=== PATIENT | male | born 1985 | race Native Hawaiian/Other Pacific Islander ===

== ENCOUNTER 2018-10-10 17:25 | Inpatient (IN) | payer OTHER ==
[~2018-10-10] VITALS: Ht 165.1 cm; Wt 73.5 kg
--- NOTE | 2018-10-10 18:20 | NUR ---
blood was drawn for labs.
--- NOTE | 2018-10-10 18:21 | NUR ---
in room 2a c/o abdominal pain since last night. took tums with no relief. this am had 1 episode of vomiting
[2018-10-10] MEDS ORDERED: MORPHINE SULFATE 2 MG/1 ML DISP.SYRIN IV ONE ×2 (18:30→18:45)
[2018-10-10] MEDS ORDERED: IV NORMAL SALINE 1000 ML BAG IV ONE (18:30)
[2018-10-10] MEDS ORDERED: ONDANSETRON 4 MG/2 ML VIAL IV ONE (18:30)
[2018-10-10 18:40] LABS: BASOPHILS # (AUTO) 0.1 K/uL (0.0-8.0); BASOPHILS % (AUTO) 0.5 % (0.0-2.0); LYMPHOCYTES # (AUTO) 1.4 K/uL (20.0-40.0); LYMPHOCYTES % (AUTO) 9.2 % (20.5-51.5); MEAN CORPUSCULAR HEMOGLOBIN 20.7 uug (23.8-33.4); MEAN CORPUSCULAR HGB CONC 32 g/dL (32.5-36.3); MEAN CORPUSCULAR VOLUME 65.2 fL (73.0-96.2); MONOCYTES # (AUTO) 0.8 K/uL (2.0-10.0); MONOCYTES % (AUTO) 5.1 % (0.0-11.0); NEUTROPHILS # (AUTO) 13.3 K/uL (1.8-8.9); NEUTROPHILS % (AUTO) 85.2 % (38.5-71.5); PLATELET COUNT (AUTO) 314 K/uL (152-348); WHITE BLOOD COUNT (AUTO) 15.6 K/uL (3.6-10.2)
[2018-10-10 18:42] LABS: CREATININE 0.9 mg/dL (0.6-1.3); POTASSIUM 3.8 mmol/L (3.5-5.1)
[2018-10-10 18:46] LABS: RED BLOOD CELL COUNT(AUTO) 6.75 MIL/uL (4.06-5.63)
[2018-10-10 18:47] LABS: BILIRUBIN,DIRECT 0.3 mg/dL (0.0-0.2); BILIRUBIN,TOTAL 1.2 mg/dL (0.2-1.0); TOTAL PROTEIN, SERUM 8.6 g/dL (6.4-8.2)
[2018-10-10] MEDS ORDERED: ONDANSETRON 4 MG/2 ML VIAL ONE (18:52)
[2018-10-10] MEDS ORDERED: MORPHINE SULFATE 4 MG/1 ML DISP.SYRIN ONE ×2 (18:52→20:52)
--- NOTE | 2018-10-10 18:55 | NUR ---
IV #20 inserted via left hand. IV NS started
--- NOTE | 2018-10-10 19:00 | NUR ---
zofran and Morphine given IV
[2018-10-10 19:20] LABS: BAND % (MANUAL) 1 % (0-10); LYMPHOCYTES % (MANUAL) 8 % (20-40); MONOCYTES % (MANUAL) 6 % (2-10); NEUTROPHILS % (MANUAL) 85 % (42-75)
[2018-10-10] MEDS ORDERED: SWABABLE VALVE TRANSFER SET EA MC ONE (19:23)
[2018-10-10] MEDS ORDERED: IV NORMAL SALINE 250 ML IV ONE (19:23)
[2018-10-10] MEDS ORDERED: IOHEXOL 300MG/ML 100 ML INFUS..BTL ONE (19:23)
[2018-10-10] MEDS ORDERED: NORMAL SALINE FLUSH 10 ML DISP.SYRIN ONE (19:23)
[2018-10-10 19:33] LABS: *BILIRUBIN,URIN NEGATIVE (NEGATIVE); *BLOOD, URINE NEGATIVE (NEGATIVE); *CLARITY,URINE CLEAR (CLEAR); *COLOR,URINE YELLOW (YELLOW); *KETONES,URINE 3+ (NEGATIVE); *UROBILINOGEN,URINE 0.2 E.U./dl (NORMAL); LEUKOCYTE ESTERASE ,URINE NEGATIVE (NEGATIVE); NITRITE, URINE NEGATIVE (NEGATIVE); UGLUCOSE NEGATIVE (NEGATIVE)
--- NOTE | 2018-10-10 19:37 | NUR ---
Pt in CT at this time.
[2018-10-10 19:42] LABS: WBC,URINE NONE SEEN /HPF (0-3)
[2018-10-10] MEDS ORDERED: PIPERACILLIN/TAZOBACTAM/D5W 50 ML IV ONE (20:13)
[2018-10-10] MEDS ORDERED: PIPERACILLIN SODIUM/TAZOBACTAM 3.375 G in IV DEXTROSE 5% 50 ML IV ONE (20:15)
[2018-10-10] MEDS ORDERED: MORPHINE SULFATE 4 MG/1 ML DISP.SYRIN IV ONE (20:30)
--- NOTE | 2018-10-10 21:25 | NUR ---
Dr. Youssef on phone with soa integration architect surgeon Dr. Taveras.
--- NOTE | 2018-10-10 21:40 | NUR ---
Pt aware of plan of care. Pt kept NPO at this time.
--- NOTE | 2018-10-10 21:45 | NUR ---
Report given to receiving BUSINESS CONTROL MANAGER. All belongings documented. Pt aware of plan of care.
[2018-10-10 22:13] VITALS: BP 113/50
--- NOTE | 2018-10-10 22:30 | NUR ---
RECEIVED PATIENT VIA W/C FROM ER. PATIENT IS A/O X4. NO C/O PAIN AT THIS TIME. VS WNL. NO RESP. DISTRESS NOTED. H/L INTACT AND PATENT, NOTED TO LEFT HAND #20 GAUGE. ORIENTED PATIENT TO ROOM AND CALL LIGHT. CALL LIGHT IN REACH. ALL NEEDS ATTENDED. WILL CONTINUE TO MONITOR AND ASSESS. CALLED OUT TO DR. NORMA RUCKER SUPERANNUATION CLERK FOR ADMISSION ORDERS.
[2018-10-10] MEDS ORDERED: ONDANSETRON 4 MG/2 ML VIAL IV PRN (22:45)
[2018-10-10] MEDS ORDERED: MORPHINE SULFATE 2 MG/1 ML DISP.SYRIN IV PRN (22:45)
[2018-10-10] MEDS ORDERED: Z GUARD REMEDY PASTE 57 GM TUBE TOP PRN (22:45)
[2018-10-10] MEDS: IV D5LR 1,000 ML IV PRN (22:48)
[2018-10-10] MEDS ORDERED: PIPERACILLIN/TAZOBACTAM/D5W 100 ML IV ONE (23:31)
[2018-10-11] VITALS (7 sets, daily range): BP systolic 101–122; BP diastolic 37–58
[2018-10-11] MEDS: PIPERACILLIN/TAZOBACTAM/D5W 50 ML IV SCH ×2 (00:14→05:50)
--- NOTE | 2018-10-11 06:00 | NUR ---
PATIENT ASLEEP IN BED. SLEPT WELL THROUGHOUT THE NIGHT. IVF INFUSING WELL ORDERED. PATIENT KEPT NPO ORDERED PER MD. VSS. CALL LIGHT IN REACH. ALL NEEDS ATTENDED. WILL CONTINUE TO MONITOR AND ASSESS.
[2018-10-11 07:11] LABS: BILIRUBIN,TOTAL 1.1 mg/dL (0.2-1.0); CREATININE 1.1 mg/dL (0.6-1.3); PHOSPHOROUS 3.8 mg/dL (2.5-4.9); POTASSIUM 3.6 mmol/L (3.5-5.1); TOTAL PROTEIN, SERUM 6.7 g/dL (6.4-8.2)
[2018-10-11 07:25] LABS: BASOPHILS % (AUTO) 0.2 % (0.0-2.0); EOSINOPHILS % (AUTO) 0.5 % (0.0-7.0); LYMPHOCYTES % (AUTO) 19.2 % (20.5-51.5); MEAN CORPUSCULAR HEMOGLOBIN 20.6 uug (23.8-33.4); MEAN CORPUSCULAR HGB CONC 31 g/dL (32.5-36.3); MEAN CORPUSCULAR VOLUME 65.8 fL (73.0-96.2); MONOCYTES # (AUTO) 0.8 K/uL (2.0-10.0); MONOCYTES % (AUTO) 7.4 % (0.0-11.0); NEUTROPHILS # (AUTO) 7.6 K/uL (1.8-8.9); NEUTROPHILS % (AUTO) 72.7 % (38.5-71.5); PLATELET COUNT (AUTO) 278 K/uL (152-348); RED BLOOD CELL COUNT(AUTO) 5.83 MIL/uL (4.06-5.63)
[2018-10-11 07:38] LABS: HEMATOCRIT 38.4 % (36.7-47.1); WHITE BLOOD COUNT (AUTO) 10.4 K/uL (3.6-10.2)
--- NOTE | 2018-10-11 08:00 | NUR ---
RECEIVED PATIENT IN BED AWAKE ALERT AND ORIENTED HE IS NOTHING BY MOUTH PENDING SURGERY TODAY AWAITING FOR DR BARNES RE PLANS TODAY STATED PAIN IS TOLERABLE AT THIS TIME MADE COMFORTABLE.
--- NOTE | 2018-10-11 08:45 | NUR ---
CALL RECEIVED FROM DR BARNES BY THE DINKEY ENGINE FIRER STATED PATIENT IS SCHEDULED FOR SURGERY TODAY PATIENT AWARE WILL PREP HIM.
[2018-10-11 08:52] LABS: BASOPHILS % (MANUAL) 1 % (0-2); EOSINOPHILS % (MANUAL) 1 % (0-8); LYMPHOCYTES % (MANUAL) 26 % (20-40); MONOCYTES % (MANUAL) 6 % (2-10); NEUTROPHILS % (MANUAL) 66 % (42-75)
--- NOTE | 2018-10-11 10:00 | NUR ---
PATIENT REMAINS NOTHING BY MOUTH ORDERED CONSCENT FOR LAPAROSCOPIC APPENDECTOMY VS OPEN TO BE PERFORMED BY DR BARNES TODAY OBTAINED AND DOCUMENTED IVF IN PROGRESS ORDERED WITH NO S/S OF INFILTERATION AT THIS TIME.
[2018-10-11] MEDS ORDERED: LIDOCAINE HCL 1% 20 ML VIAL ONE ×2 (12:18→13:05)
[2018-10-11] MEDS ORDERED: BUPIVACAINE/EPI PF 0.25% 30 ML VIAL ONE (12:18)
[2018-10-11] MEDS: IV D5LR 1,000 ML IV PRN (12:35)
--- NOTE | 2018-10-11 12:50 | NUR ---
PATIENT PICKED UP BY BED TO OR FOR SURGERY SCHEDULED IN SATISFACTORY CONDITION .
[2018-10-11] MEDS ORDERED: MIDAZOLAM HCL 2 MG/2 ML VIAL ONE (13:16)
[2018-10-11] MEDS ORDERED: ROCURONIUM BROMIDE 50 MG/5 ML VIAL ONE (13:16)
[2018-10-11] MEDS ORDERED: FENTANYL CITRATE 250 MCG/5 ML AMPUL ONE (13:16)
[2018-10-11] MEDS ORDERED: PIPERACILLIN/TAZOBACTAM/D5W 3.375 G in PREMIXED 1 EACH IV SCH ×2 (14:00→22:00)
[2018-10-11] MEDS ORDERED: MEPERIDINE 25 MG/1 ML DISP.SYRIN ONE (14:53)
[2018-10-11] MEDS ORDERED: ACETAMINOPHEN 325 MG TABLET PO PRN (15:00)
[2018-10-11] MEDS ORDERED: HYDROCODONE/APAP 5-325MG TABLET PO PRN (15:00)
[2018-10-11] MEDS ORDERED: ACETAMINOPHEN ES 500 MG TABLET PO PRN (15:15)
--- NOTE | 2018-10-11 15:45 | NUR ---
PATIENT RETURNED BY BED FROM SURGERY S/P LAP APPY WITH 3 SCOPE SITES WITH DEMABOND GLUE PATIENT IS AWAKE ALERT AND ORIENTED DENIES PAIN OR DISCOMFORTS AT THIS TIME ON O2 AT 2L/M BY NASAL CANULA POST OP CARE AND EDUCATION STARTED IS INSTRUCTED AND EDUCATED AND PATIENT EXPRESSED UNDERSTANDING.PATIENT IS ON CLEAR LIQUIDS DIET WATER AND TEA PROVIDED PER PATIENTS REQUEST.
[2018-10-11] MEDS ORDERED: DEXAMETHASONE SOD PHOSPHATE 4 MG INJ IV ONE (17:14)
[2018-10-11] MEDS ORDERED: ONDANSETRON 4 MG/2 ML VIAL IV ONE (17:14)
[2018-10-11] MEDS ORDERED: GLYCOPYRROLATE 0.2 MG/ML VIAL MC ONE (17:14)
[2018-10-11] MEDS ORDERED: IV NORMAL SALINE 1000 ML BAG IV ONE (17:14)
[2018-10-11] MEDS ORDERED: LIDOCAINE-MPF 2% 5 ML VIAL MC ONE (17:14)
[2018-10-11] MEDS ORDERED: METOCLOPRAMIDE HCL 10 MG/2 ML VIAL IV ONE (17:14)
[2018-10-11] MEDS ORDERED: NEOSTIGMINE METHYLSULFATE 10 MG/10 ML VIAL IV ONE (17:14)
[2018-10-11] MEDS ORDERED: IRR NORMAL SALINE IRRIGATION 2000 ML BOTTLE IR ONE (17:14)
[2018-10-11] MEDS ORDERED: SEVOFLURANE 250 ML BOTTLE IH ONE (17:14)
[2018-10-11] MEDS ORDERED: PROPOFOL 200 MG/20 ML BOTTLE IV ONE (17:14)
[2018-10-11] MEDS ORDERED: IRR NORMAL SALINE IRRIGATION 1,000 ML BOTTLE IR ONE (17:14)
--- NOTE | 2018-10-11 17:52 | NUR ---
PATIENT IS RESTING AWAKE ALERT AND ORIENTED USING HIS INCENTIVE SPIROMETER TOLERATING LIQUIDS DIET ORDERED WITH NO N/V AT THIS TIME ENCOURAGED PATIENT TO GET OUT OF BED AND WALK STATED LATER NOT READY AT THIS TIME.3 SCOPE INCISION SITES REMAIN INTACT WITH NO DRAINAGE NO BLEEDING AT THIS TIME.WILL CONTINUE TO OBSERVE PATIENT.
--- NOTE | 2018-10-11 20:00 | NUR ---
RECEIVED PATIENT AWAKE IN BED WITH VISITORS AT BEDSIDE. PATIENT IS A/O X4. DENIES PAIN, BUT STATED MILD DISCOMFORT IS PRESENT. DENIES NEEDS FOR ANY MEDICATION AT THIS TIME. VSS. IVF INFUSING WELL TO RIGHT HAND #20 GAUGE. 3 INCISIONS SITES, INTACT. I.S AT BEDSIDE. PATIENT ON O2 2L NC SATING WELL. CALL LIGHT IN REACH. ALL NEEDS ATTENDED. WILL CONTINUE TO MONITOR AND ASSESS.
--- NOTE | 2018-10-11 21:30 | NUR ---
PATIENT OOB AND AMBULATING IN HALLWAY WITH SALES TEAM MANAGER. WILL CONTINUE TO MONITOR.
[2018-10-11] MEDS: MORPHINE SULFATE 2 MG/1 ML DISP.SYRIN IV PRN (22:04)
--- NOTE | 2018-10-11 22:05 | NUR ---
PATIENT AWAKE IN BED. C/O PAIN. VSS. PATIENT GIVEN MORPHINE 2MG IV PER LINE APPLIANCE ASSEMBLER. CALL LIGHT IN REACH. ALL NEEDS ATTENDED.
[2018-10-11] MEDS ORDERED: PIPERACILLIN/TAZOBACTAM/D5W 100 ML IV ONE (22:49)
[2018-10-11] MEDS: PIPERACILLIN/TAZOBACTAM/D5W 3.375 G in PREMIXED 1 EACH IV SCH (22:55)
[2018-10-12] MEDS: IV D5LR 1,000 ML IV PRN (02:06)
--- NOTE | 2018-10-12 02:10 | NUR ---
PATIENT AWAKE. C/O MILD DISCOMFORT IN LOWER ABDOMEN. PATIENT ASKING FOR TYLENOL. GIVEN TYLENOL 500MG PO PRN FOR MILD PAIN. WILL CONTINUE TO MONITOR.
--- NOTE | 2018-10-12 03:00 | NUR ---
PATIENT ASLEEP. NO S/S OF PAIN OR DISCOMFORT. WILL CONTINUE TO MONITOR AND ASSESS.
[2018-10-12 03:21] VITALS: BP 102/51
[2018-10-12] MEDS: PIPERACILLIN/TAZOBACTAM/D5W 3.375 G in PREMIXED 1 EACH IV SCH (05:48)
[2018-10-12] MEDS: MORPHINE SULFATE 2 MG/1 ML DISP.SYRIN IV PRN (05:53)
--- NOTE | 2018-10-12 06:00 | NUR ---
PATIENT C/O PAIN. GIVEN MORPHINE 2MG IV PER DOCUMENT IMPROVEMENT SPECIALIST. VSS. CALL LIGHT IN REACH. ALL NEEDS ATTENDED.
[2018-10-12] MEDS ORDERED: PANTOPRAZOLE SODIUM 40 MG TABLET.DR PO SCH (07:00)
[2018-10-12 07:41] LABS: BASOPHILS % (AUTO) 0.2 % (0.0-2.0); EOSINOPHILS % (AUTO) 0.5 % (0.0-7.0); HEMATOCRIT 36.3 % (36.7-47.1); HEMOGLOBIN 11.4 g/dL (12.5-16.3); LYMPHOCYTES % (AUTO) 23.6 % (20.5-51.5); MEAN CORPUSCULAR HEMOGLOBIN 20.7 uug (23.8-33.4); MEAN CORPUSCULAR HGB CONC 31 g/dL (32.5-36.3); MONOCYTES # (AUTO) 0.5 K/uL (2.0-10.0); MONOCYTES % (AUTO) 5.7 % (0.0-11.0); PLATELET COUNT (AUTO) 249 K/uL (152-348); WHITE BLOOD COUNT (AUTO) 8.5 K/uL (3.6-10.2)
[2018-10-12 07:45] LABS: BILIRUBIN,TOTAL 0.8 mg/dL (0.2-1.0); MAGNESIUM 2.2 mg/dL (1.8-2.4); PHOSPHOROUS 3.9 mg/dL (2.5-4.9); POTASSIUM 3.6 mmol/L (3.5-5.1); TOTAL PROTEIN, SERUM 6.4 g/dL (6.4-8.2)
--- NOTE | 2018-10-12 08:00 | NUR ---
RECEIVED PATIENT IN BED AWAKE ALERT AND ORIENTED REMAINS ON O2 WITH NO SHORTNESS OF BREATH AT THIS TIME IVF ORDERED WITH NO S/S OF INFILTERATION ON SITE PATIENT REINSTRUCTED TO COUGH AND DEEP BREATH AND USE THE INCENTIVE SPIROMETER INSTRUCTED AND EXPRESSED UNDERSTANDING ABDOMEN SCOPE SITES REMAIN INTACT WITH NO DRAINAGE AT THIS TIME PATIENT INSTRUCTED TO GET OUT OF BED AND WALK AND STATED YES WILL WALK A LITTLE BIT LATER.DENIES DISCOMFORTS STATED JUST HAS A LITTLE SORENESS WILL CONTINUE TO OBSERVE.
[2018-10-12 11:40] VITALS: BP 133/75
[2018-10-12] MEDS ORDERED: PIPERACILLIN/TAZOBACTAM/D5W 3.375 G in PREMIXED 1 EACH IV SCH (14:00)
--- NOTE | 2018-10-12 14:00 | NUR ---
CALLED DR MELARA OFFICE AND L;EFT A MESSAGE RE PATIENT IS BEING PREPPED FOR DISCHARGE IN CASE HE HAS ANY ORDERS.
--- NOTE | 2018-10-12 15:19 | NUR ---
NEW ORDERS NOTED FROM DR CHERY TO DISCHARGE PATIENT HOME TODAY AWAITING FOR HIM TO FINALIZE HIS ORDERS D/C PLANNING PATIENT AWARE.
[2018-10-12 15:50] VITALS: BP 139/68
[2018-10-12] MEDS ORDERED: CEPH-570 PO (15:57)
[2018-10-12] MEDS ORDERED: HYDR-3326 PO (16:05)
--- NOTE | 2018-10-12 16:30 | NUR ---
DR CHERY HERE AND SEEN PATIENT WITH ORDER TO DISCHARGE PATIENT HOME TODAY PATIENT AWARE AND STATED THAT HIS SISTER DALILA WILL BE HERE SOON TO PICK HIM UP.
--- NOTE | 2018-10-12 17:15 | NUR ---
PATIENT DISCHARGED PICKED UP BY HIS SISTER IN SATISFACTORY CONDITION WITH DISCHARGE INSTRUCTIONS AND PRESCRIPTIONS IN SATISFACTORY CONDITION PATIENT WAS INSTRUCTED TO CALL DR BARNES FOR A FOLLOW UP APPOINTMENT AND TO CONTINUE HIS ATB ORDERED [facility] WAS HERE FOR EDUCTION PATIENT ESCORTED DOWN.
== END 2018-10-12 17:15 | disposition home or self-care (01) | DRG 854 ==
LOC: ER 17:25 → MEDSURG3 21:54
PROVIDERS: ADMIT Nurse Practitioner Acute Care; ATTEND Internal Medicine
PROC: 0DTJ4ZZ Resection of Appendix, Percutaneous Endoscopic Approach (ICD-10-PCS; principal; 2018-10-11)
DX: A41.9 Sepsis, unspecified organism (principal); K35.80 Unspecified acute appendicitis; R17 Unspecified jaundice; K38.1 Appendicular concretions; K40.90 Unilateral inguinal hernia, without obstruction or gangrene, not specified as recurrent; K76.89 Other specified diseases of liver; F17.290 Nicotine dependence, other tobacco product, uncomplicated; D50.9 Iron deficiency anemia, unspecified; R73.9 Hyperglycemia, unspecified
CPT/HCPCS: 36415; 71045; 83550; 83735; 84100; 85025; 85730; 93005; A4217; A4663; A9150; G0378; J1100; J2175; J2250; J2270; J2405; J2543; J2710; J2765; J3010; J3490; J7030; J7050; Q9967